=== PATIENT | female | born 1965 | race Caucasian/White ===

== ENCOUNTER 2018-11-22 21:48 | Emergency (ER) | payer OTHER ==
[~2018-11-22] VITALS: Ht 165.1 cm; Wt 177.4 kg
[2018-11-22 21:52] VITALS: BP_SYST 151
[2018-11-23] MEDS ORDERED: IBUPROFEN 800 MG TABLET PO ONE (01:00)
[2018-11-23] MEDS ORDERED: DIPH-TET-PERTUS Vaccine 0.5 ML VIAL (ADACEL) I.M. ONE (01:00)
[2018-11-23 02:18] VITALS: BP_SYST 146
== END 2018-11-23 02:18 | disposition home or self-care (01) ==
LOC: SED 21:48
DX: M17.12 Unilateral primary osteoarthritis, left knee (principal); Z88.0 Allergy status to penicillin
CPT/HCPCS: 73564; 90715; 99283